=== PATIENT | male | born 1985 | race African-American/Black ===

== ENCOUNTER 2022-01-28 19:31 | Emergency (ER) | payer MEDICAID ==
[~2022-01-28] VITALS: Ht 175.3 cm; Wt 68.0 kg
[2022-01-28 20:11] VITALS: BP 108/64
[2022-01-28] MEDS ORDERED: IBUPROFEN 600MG TABLET PO ONE (20:30)
[2022-01-28] MEDS ORDERED: BACITRACIN ZINC OINT UDPKT TOP ONE (20:30)
== END 2022-01-28 22:00 | disposition home or self-care (01) ==
LOC: ER 19:31
DX: S61.311A Laceration without foreign body of left index finger with damage to nail, initial encounter (principal); S61.012A Laceration without foreign body of left thumb without damage to nail, initial encounter; W26.0XXA Contact with knife, initial encounter; Y93.89 Activity, other specified; Y92.010 Kitchen of single-family (private) house as the place of occurrence of the external cause
CPT/HCPCS: 99282